=== PATIENT | female | born 1965 | race African-American/Black ===

== ENCOUNTER 2020-11-06 13:30 | Emergency (ER) | payer BC, SELFPAY ==
--- NOTE | ~2020-11-06 | XR_ITS ---
EXAMINATION: XR knee LT 2V CLINICAL INFORMATION: Reason for Exam FALL PAIM COMPARISON: None available at the time of this dictation. TECHNIQUE: Frontal and lateral views of the elbow were obtained. FINDINGS: There is no fracture or dislocation. Bone alignments are satisfactory. Surrounding soft tissues are normal. No osteolytic or osteoblastic lesion. XR/XR knee LT 2V IMPRESSION: No fracture. No joint effusion.
--- NOTE | ~2020-11-06 | XR_ITS ---
EXAMINATION: XR SHOULDER, LEFT CLINICAL INFORMATION: Fall COMPARISON: None TECHNIQUE: Frontal and lateral of the left shoulder. FINDINGS: The bones and soft tissues are normal. No fracture. Glenohumeral and acromioclavicular alignment is anatomic with normal joint space. No abnormal soft tissue calcifications. XR/XR shoulder LT min 2V IMPRESSION: No radiographic evidence of acute fracture or dislocation.
--- NOTE | ~2020-11-06 | XR_ITS ---
EXAMINATION: XR ELBOW, LEFT CLINICAL INFORMATION: Pain. COMPARISON: Same-day left forearm radiographs. TECHNIQUE: AP and lateral views of the left elbow. FINDINGS: The bones and soft tissues are normal. No fracture or joint effusion. Alignment is anatomic. Joint spaces are maintained. XR/XR elbow LT 2V IMPRESSION: Right elbow: No acute fracture or malalignment. No joint effusion. Normal soft tissues.
--- NOTE | ~2020-11-06 | XR_ITS ---
EXAMINATION: XR HAND, LEFT CLINICAL INFORMATION: Pain COMPARISON: None TECHNIQUE: PA, lateral, and oblique views of the left hand. FINDINGS: The bones and soft tissues are normal. No fracture. Alignment is anatomic. Joint spaces are maintained. No erosions or soft tissue calcifications. XR/XR hand LT 2V IMPRESSION: No fracture of the hand. There is comminuted distal radial fracture will be described on the x-ray of the forearm.
--- NOTE | ~2020-11-06 | XR_ITS ---
EXAMINATION: XR FOREARM, LEFT CLINICAL INFORMATION: Pain. COMPARISON: Same-day left elbow radiographs. TECHNIQUE: AP and lateral views of the left forearm were obtained. FINDINGS: Comminuted nondisplaced impacted fracture of the distal radius. Fracture line appears to extend to the articular surface. There is mild volar tilt at the fracture site. The wrist is approximated. Mild soft tissue swelling about the wrist. No radiopaque foreign body. XR/XR forearm LT 2V IMPRESSION: Left forearm: Comminuted, impacted, intra-articular fracture of the distal radius with mild volar tilt at the fracture site. Wrist is approximated.
[2020-11-06 13:38] VITALS: BP 213/99; PULSE 81; RESP 24; TEMP 36.9; O2SAT 95; BMI 31.1
[2020-11-06] MEDS: oxyCODONE HCl Immed Release 5 MG TABLET PO (13:55)
--- NOTE | 2020-11-06 13:55 | ED.LOWEXIN ---
HPI - Extremity Injury (Lower) General Chief Complaint: Extremity Injury, Lower Stated Complaint: fall Time Seen by Provider: 11/06/20 13:43 Source: patient Mode of arrival: ambulatory Limitations: no limitations History of Present Illness HPI Narrative: 55-year-old woman who tells me that she was cleaning her floors when she slipped on her own shoe catching herself on her left upper extremity and left knee. Denies hitting her head or loss of consciousness. She is here complaining of left wrist pain, left shoulder pain and left knee pain.. Related Data Previous Rx's Medication Instructions Recorded oxycodone 5 mg PO Q8H PRN #10 tab 11/06/20 Allergies Allergy/AdvReac Type Severity Reaction Status Date / Time peginterferon marianela-2b Allergy Unknown Verified 11/06/20 13:42 [From Sylatron] Sulfa (Sulfonamide Allergy Unknown Verified 11/06/20 13:42 Antibiotics) sulfamethoxazole Allergy Unknown Verified 11/06/20 13:42 [From Bactrim] trimethoprim [From Bactrim] Allergy Unknown Verified 11/06/20 13:42 Review of Systems Review of Systems: Yes all other systems are reviewed and are negative Constitutional: Constitutional: Reports no additional constitutional complaints, Denies body ache(s), Denies chills, Denies fever(s), Denies headache(s) and Denies weakness Eyes: Eyes: Reports no additional eye complaints and Denies change in vision ENT: Reports system reviewed and no additional complaints, except as documented, Denies dizziness, Denies headache(s), Denies nasal congestion, Denies nasal discharge and Denies neck pain Cardiovascular: Cardiovascular: Reports no additional cardiovascular complaints, Denies chest pain, Denies leg edema and Denies dyspnea Respiratory: Respiratory: Reports no additional respiratory complaints, Denies cough and Denies dyspnea Gastrointestinal: Gastrointestinal: Reports no additional gastrointestinal complaints, Denies abdominal pain, Denies diarrhea, Denies nausea and Denies vomiting Genitourinary: Genitourinary: Reports no additional female genitourinary complaints and Denies urinary incontinence Musculoskeletal: Musculoskeletal: Reports no additional musculoskeletal complaints, Denies back pain, Reports arthralgias, Reports joint swelling, Reports limited range of motion, Denies neck pain, Denies numbness and Denies tingling Integumentary/Breasts: Skin/Breast: Reports system reviewed and no additional complaints, except as docu and Denies rash Neurologic: Reports system reviewed and no additional complaints, except as documented, Denies Abnormal speech present, Denies dizziness, Denies headache(s), Denies numbness, Denies tingling and Denies weakness PMFSH Past Medical History Attestation statement: The following information was validated with the patient. Source: old records reviewed and nursing notes reviewed Medical History HTN (hypertension) Social History Social History Advance Directives: No Advance Directives Information Provided: Yes Patient : No Physical Exam Vital Signs: Vital Signs: Last Vital Signs Temp 97.8 F 11/06/20 15:18 Pulse 65 11/06/20 15:18 Resp 18 11/06/20 15:18 BP 172/86 H 11/06/20 15:18 Pulse Ox 98 11/06/20 15:18 Body Mass Index 31.1 Const: Other: In pain General: cooperative Orientation/consciousness: patient oriented x3 Limitations: no limitations HENMT: Head: Yes normal to inspection Ears: hearing grossly normal bilaterally General nose exam: Normal external nose present Face and sinus: Yes normal facial exam Mouth: Normal oral and palatal mucosa present Throat: Yes posterior oropharynx normal Eyes: General: appearance normal, both eyes and all related structures Pupils: Equal, round and reactive pupils present Neck: Neck: Yes normal visual inspection Chest: Chest palpation & inspection: normal inspection of the chest Resp: Effort & Inspection: normal respiratory effort Auscultation: clear to auscultation bilaterally Cardio: Rate: regular rate Rhythm: regular rhythm Peripheral pulses: Peripheral pulses 2+ throughout GI: Inspection: Yes normal to inspection Palpation (GI): Soft to palpation and nontender Auscultation: normal bowel sounds Back/Spine/Pelvis: Thoracic/Lumbar Spine: thoracic and lumbar spine normal to inspection Skin: General skin exam: no rashes or lesions noted Neuro: General: patient oriented x3, no focal motor deficits and normal sensation to monofilament Cranial nerves: Yes Equal, round and reactive pupils present Cognition (Neuro): normal cognition Speech: No Abnormal speech present Gait exam (Neuro): Normal gait present Motor exam (neuro): 5/5 motor strength present throughout Extrem: Other: The left distal wrist is deformed with swelling and tenderness. Neurovascular intact distally. Palpable radial pulse. There is tenderness to the posterior left shoulder with no obvious deformity or dislocation. Pain with abduction of the shoulder and patient is able. Mild tenderness over the left knee with no obvious swelling or deformity and full range of motion. General: Yes normal to inspection Course Course Course Narrative: 55-year-old female here with left wrist, left shoulder and left knee pain status post mechanical fall at home. Patient has obvious deformity to the left wrist. Will need x-rays, analgesia 1450-x-ray shows a left distal radial fracture which is impacted and intra-articular. No obvious angulation or displacement conducive to reduction. Discussed with orthopedics Dania THOMAS. Recommended sugar-tong splint and follow up with Orthopedics in the office on Sunday -All other imaging negative. Reviewed findings with the patient. Recommended follow-up with Orthopedics. She was splinted and placed in a sling for comfort. Reviewed worrisome signs and symptoms and when to return to the emergency department. Comfortable discharge home. Procedures Procedure Narrative Procedure Narrative: Sugar-tong splint left upper extremity, sling MDM - Extremity Injury (Lower) Medical Records Attestation: I reviewed the patient's medical records. Lab Data Attestation: I reviewed the patient's lab results. Imaging Data left wrist xray: Attestation: I personally reviewed and interpreted this imaging study as follows: Radiologist's impression: [address] [id number] ReportSigned Patient: Macrina Campo#: [id number]: 1965Acct:[id number]/Sex: 55 / FADM Date: 11/06/20Loc: [email or web address].EDAttending Dr: Ordering Physician: FRANNY STANLEY NP Date of Service: 11/06/20 Procedure(s): XR forearm LT 2V Accession Number(s): [id number] cc: FRANNY STANLEY NP~ EXAMINATION: XR FOREARM, LEFT CLINICAL INFORMATION: Pain. COMPARISON: Same-day left elbow radiographs. TECHNIQUE: AP and lateral views of the left forearm were obtained. FINDINGS: Comminuted nondisplaced impacted fracture of the distal radius. Fracture line appears to extend to the articular surface. There is mild volar tilt at the fracture site. The wrist is approximated. Mild soft tissue swelling about the wrist. No radiopaque foreign body. XR/XR forearm LT 2V IMPRESSION: Left forearm: Comminuted, impacted, intra-articular fracture of the distal radius with mild volar tilt at the fracture site. Wrist is approximated left elbow xray: Attestation: I personally reviewed and interpreted this imaging study as follows: Radiologist's impression: EXAMINATION: XR ELBOW, LEFT CLINICAL INFORMATION: Pain. COMPARISON: Same-day left forearm radiographs. TECHNIQUE: AP and lateral views of the left elbow. FINDINGS: The bones and soft tissues are normal. No fracture or joint effusion. Alignment is anatomic. Joint spaces are maintained. XR/XR elbow LT 2V IMPRESSION: Right elbow: No acute fracture or malalignment. No joint effusion. Normal soft tissues. left hand xray: Attestation: I personally reviewed and interpreted this imaging study as follows: Radiologist's impression: [address] [address]IEni ReportSigned Patient: Macrina CampoMR#: [id number]: 1965Acct:[id number]/Sex: 55 / FADM Date: 11/06/20Loc: EDAttending Dr: Ordering Physician: FRANNY STANLEY NP Date of Service: 11/06/20 Procedure(s): XR hand LT 2V Accession Number(s): [id number] cc: FRANNY STANLEY NP~ EXAMINATION: XR HAND, LEFT CLINICAL INFORMATION: Pain COMPARISON: None TECHNIQUE: PA, lateral, and oblique views of the left hand. FINDINGS: The bones and soft tissues are normal. No fracture. Alignment is anatomic. Joint spaces are maintained. No erosions or soft tissue calcifications. XR/XR hand LT 2V IMPRESSION: No fracture of the hand. left knee xray: Attestation: I personally reviewed and interpreted this imaging study as follows: Radiologist's impression: EXAMINATION: XR knee LT 2V CLINICAL INFORMATION: Reason for Exam FALL PAIM COMPARISON: None available at the time of this dictation. TECHNIQUE: Frontal and lateral views of the elbow were obtained. FINDINGS: There is no fracture or dislocation. Bone alignments are satisfactory. Surrounding soft tissues are normal. No osteolytic or osteoblastic lesion. XR/XR knee LT 2V IMPRESSION: No fracture. left shoulder xray: Attestation: I personally reviewed and interpreted this imaging study as follows: Radiologist's impression: EXAMINATION: XR SHOULDER, LEFT CLINICAL INFORMATION: Fall COMPARISON: None TECHNIQUE: Frontal and lateral of the left shoulder. FINDINGS: The bones and soft tissues are normal. No fracture. Glenohumeral and acromioclavicular alignment is anatomic with normal joint space. No abnormal soft tissue calcifications. XR/XR shoulder LT min 2V IMPRESSION: No radiographic evidence of acute fracture or dislocation. Discharge Plan Discharge Clinical Impression: Distal radial fracture Qualifiers: Encounter type: initial encounter Fracture type: closed Fracture morphology: other intra-articular Laterality: left Qualified Code(s): S52.572A - Other intraarticular fracture of lower end of left radius, initial encounter for closed fracture Patient Disposition: Home, Self-Care Instructions: Wrist Fracture in Adults (ED) Additional Instructions: The splint stays on all times. Do not let it get wet. Use a sling for comfort Follow-up with Orthopedics on Sunday Ice, elevation, pain medication as needed Prescriptions: New oxycodone 5 mg tablet 5 mg PO Q8H PRN (Reason: pain) Qty: 10 RF: 0 Referrals: Drew Washington MD [Physician] - 2 days Stand Alone Forms: Work/School Release Interventions: ED Discharge Assessment Last Done: 11/06/20 16:37 Discharge Date/Time: 11/06/20 16:38
[2020-11-06] MEDS: Ibuprofen 800 MG TABLET PO (14:00)
[2020-11-06 15:18] VITALS: BP 172/86; PULSE 65; RESP 18; TEMP 36.6; O2SAT 98
--- NOTE | 2020-11-06 15:52 | PC.NURSE ---
[place] MCINTYRE APPLIED TO LUE, PT TOLERATED WELL, AWAITING ASSESSMENT BY GEE STANLEY
== END 2020-11-06 16:38 | disposition home or self-care (01) ==
PROVIDERS: Emergency Provider Emergency Medicine
DX: S52.572A Other intraarticular fracture of lower end of left radius, initial encounter for closed fracture (principal); W01.0XXA Fall on same level from slipping, tripping and stumbling without subsequent striking against object, initial encounter; M25.512 Pain in left shoulder; M25.562 Pain in left knee; I10 Essential (primary) hypertension; Y93.E5 Activity, floor mopping and cleaning; Y92.010 Kitchen of single-family (private) house as the place of occurrence of the external cause; Y99.9 Unspecified external cause status
CPT/HCPCS: 29125; 73030; 73070; 73090; 73120; 73560; 99283; 99284

== ENCOUNTER 2020-11-09 07:46 | Outpatient (REF) | payer BC, SELFPAY ==
--- NOTE | ~2020-11-09 | XR_ITS ---
EXAMINATION: XR WRIST, LEFT CLINICAL INFORMATION: Pain left wrist COMPARISON: None TECHNIQUE: PA, lateral, and oblique views of the left wrist. FINDINGS: There is a comminuted nondisplaced impacted fracture distal radius stabilized in a hard cast.. The soft tissues are normal. XR/XR wrist LT min 3V IMPRESSION: Comminuted nondisplaced fracture distal radius in satisfactory alignment status post placement in a hard cast.
== END 2020-11-09 07:47 | disposition home or self-care (01) ==
LOC: HO.HOSX 07:46
PROVIDERS: Visit Provider Physician Assistant
DX: S52.502D Unspecified fracture of the lower end of left radius, subsequent encounter for closed fracture with routine healing (principal)
CPT/HCPCS: 73110

== ENCOUNTER 2020-11-15 07:33 | Outpatient (REF) | payer BC, SELFPAY ==
--- NOTE | ~2020-11-15 | XR_ITS ---
EXAMINATION: XR WRIST, LEFT CLINICAL INFORMATION: Fracture follow-up. COMPARISON: Most recent left wrist radiographs dated 11/09/2020. TECHNIQUE: PA, lateral, and oblique views of the left wrist. FINDINGS: Redemonstration of a comminuted distal radial fracture in unchanged anatomic alignment when compared to the most recent radiographs. No significant interval new bone/callus formation. No new fracture. No osseous erosion. Circumferential soft tissue swelling. XR/XR wrist LT min 3V IMPRESSION: Comminuted distal radial fracture in unchanged anatomic alignment.
== END 2020-11-15 07:34 | disposition home or self-care (01) ==
LOC: HO.HOSX 07:33
PROVIDERS: Visit Provider Physician Assistant
DX: S52.502D Unspecified fracture of the lower end of left radius, subsequent encounter for closed fracture with routine healing (principal); S83.8X2A Sprain of other specified parts of left knee, initial encounter
CPT/HCPCS: 73110

== ENCOUNTER 2020-12-14 07:24 | Outpatient (REF) | payer BC, SELFPAY ==
--- NOTE | ~2020-12-14 | XR_ITS ---
EXAMINATION: XR WRIST, LEFT CLINICAL INFORMATION: Fracture of left wrist. COMPARISON: None TECHNIQUE: PA, lateral, and oblique views of the left wrist. FINDINGS: There is nondisplaced comminuted distal radial fracture and in anatomic alignment. The radioulnar and carpal alignment is maintained normal. There is minimal dorsal soft tissue swelling. XR/XR wrist LT min 3V IMPRESSION: Multiple nondisplaced comminuted distal radial fracture in alignment, stable compared to previous study 11/15/2020.
== END 2020-12-14 07:25 | disposition home or self-care (01) ==
LOC: HO.HOSX 07:24
PROVIDERS: Visit Provider Physician Assistant
DX: S52.502A Unspecified fracture of the lower end of left radius, initial encounter for closed fracture (principal); X58.XXXA Exposure to other specified factors, initial encounter; Y93.9 Activity, unspecified; Y92.9 Unspecified place or not applicable; Y99.9 Unspecified external cause status
CPT/HCPCS: 73110

== ENCOUNTER 2020-12-16 10:22 | Outpatient (REF) | payer BC, SELFPAY ==
--- NOTE | ~2020-12-16 | MR_ITS ---
EXAMINATION: MR KNEE WITHOUT CONTRAST, LEFT CLINICAL INFORMATION: Pain and swelling. COMPARISON: None. TECHNIQUE: MRI of the knee without contrast was performed using routine sequences on a high-field scanner. FINDINGS: MENISCI: Medial Meniscus: Intact. Lateral Meniscus: Intact. LIGAMENTS: Cruciate: ACL fibers are thinned, lax with apparent discontinuity proximally, having the appearance of full-thickness tear. PCL is intact.. Collateral: Grade 2 sprain/partial tear MCL. LCL complex is intact. EXTENSOR MECHANISM: Intact. ARTICULAR CARTILAGE/BONE: Patellofemoral Compartment: Focal cartilage heterogeneity of the central patella. Trochlear cartilage is intact. Medial Compartment: No focal cartilage loss. Lateral Compartment: Edema in the posterolateral aspect of the lateral femoral condyle with overlying cartilage heterogeneity, may reflect sequela of contusion or degeneration. No fracture. JOINT FLUID AND BURSAE: Trace joint fluid. No significant Demarco's cyst. MR/MR knee LT wo con IMPRESSION: 1. Abnormality of the ACL with the appearance of full-thickness tearing. 2. Grade 2 sprain/partial tear MCL. 3. Focal cartilage heterogeneity in the central patella. Osteochondral findings in the posterolateral aspect of the lateral femoral condyle, could be related to contusion or degeneration.
== END 2020-12-16 10:23 | disposition home or self-care (01) ==
LOC: HO.MRI 10:22
PROVIDERS: Visit Provider Physician Assistant
DX: S83.8X2A Sprain of other specified parts of left knee, initial encounter (principal)
CPT/HCPCS: 73721

== ENCOUNTER → 2020-12-21 13:23 | Outpatient (BNVA) | payer BC, SELFPAY | PROVIDERS: Visit Provider Physician Assistant ==

== ENCOUNTER 2020-12-29 08:38 | Outpatient (REF) | payer BC, SELFPAY ==
--- NOTE | ~2020-12-29 | XR_ITS ---
EXAMINATION: XR WRIST, LEFT CLINICAL INFORMATION: Left wrist pain, fracture follow-up COMPARISON: 12/14/2020 TECHNIQUE: PA, lateral, and oblique views of the left wrist. FINDINGS: Stable alignment. The distal radius fracture line is slightly less conspicuous suggesting that there has been some interval healing. No new abnormality. XR/XR wrist LT min 3V IMPRESSION: There has been some interval healing of the distal radius fracture.
== END 2020-12-29 08:39 | disposition home or self-care (01) ==
LOC: HO.HOSX 08:38
PROVIDERS: Visit Provider Orthopaedic Surgery
DX: S52.502A Unspecified fracture of the lower end of left radius, initial encounter for closed fracture (principal); M25.632 Stiffness of left wrist, not elsewhere classified
CPT/HCPCS: 73110

== ENCOUNTER 2021-01-07 14:00 | Outpatient (RCR) | payer BC, SELFPAY ==
--- NOTE | 2020-11-18 08:34 | MHC.PT.EP ---
[facility] [place] Office [place] Office [place] Office [address] Sixto Caro [address] [phone] F: [phone] F: [phone] F: [phone] F: [phone] Physical Therapy Plan of Care Date of Evaluation: Date of Surgery: Diagnosis: left knee sprain Assessment: The patient has reduced Left knee ROM and strength. She was + for special tests indicating the anterior medial meniscus. I am suspecting an anterior medial meniscal tear. Her collateral ligaments seem intact with no pain when testing these ligaments. She had pain during the anterior drawer, but joint play seemed WNL. The patient was educated to ice 3-4x/day and she was given instructions to get a cane to unload her left knee due to a significant limp. I instructed on exercises to promote and restore knee ROM, and quad strengthening in a neutral position. If no improvements 4-5 visits I will refer back to the MD for further evaluation. I used iontophoresis today for local, point specific pain. Frequency and Duration: The patient will be seen 2x/week x 4 weeks Short Term Goals: Pt will be able to demonstrate good walking pattern with SPC. Pt will achieve full knee ROM 0-125 [address] [employer] Goals: 4 weeks. - to improve activity tolerance to help community ambulation distances demonstrated by tolerating at least 45 minutes of therapeutic activity with less than 3 resting breaks. 4 weeks - the patient will have no limiting pain in her knees during gait with community ambulation to show improved activity tolerance. 4 weeks - pt will have more quad control with TKE demonstrated by no medial collapse during a curb height step. 4 weeks -patient to be able to return to all functional movements and ADL's without limiting knee pain to show return to PLOF. Treatment Plan: Modalities to reduce pain, spasms and effusion. Manual therapy to restore motion and function. Therapeutic exercise to improve strength and flexibility. Neuromuscular re-education for posture and balance. Therapeutic activities to return to functional activities of daily living. Electronically signed by: Please sign and return to therapist. Thank you for your referral.
== END 2021-01-08 08:00 | disposition home or self-care (01) ==
LOC: HO.PT 14:00
PROVIDERS: Visit Provider Physician Assistant
DX: S83.8X2A Sprain of other specified parts of left knee, initial encounter (principal)
CPT/HCPCS: 97033; 97110; 97116; 97140; 97162; 97530

== ENCOUNTER → 2021-01-26 13:43 | Outpatient (BNVA) | payer BC, SELFPAY | PROVIDERS: Visit Provider Orthopaedic Surgery ==

== ENCOUNTER → 2021-03-03 13:37 | Outpatient (BNVA) | payer BC, SELFPAY | PROVIDERS: Visit Provider Orthopaedic Surgery ==

== ENCOUNTER 2021-04-08 10:00 | Outpatient (RCR) | payer BC, SELFPAY ==
--- NOTE | 2021-01-07 14:20 | MHC.OT.OEV ---
[address] [phone] F: [phone] Occupational Therapy Evaluation Diagnosis: Left distal radius fx Date of Onset: 11/06/20 Date of Surgery: Attending Provider: Dr Ho Prescribed Treatment: Follow Up Appointment: 01/26/21 History of Current Condition: 55 yo female tripped over a pair over shows and landed on her left side, 11/06/20. Seen in the ED where x-ray showed compacted intra-articular left distal radius fracture. She was placed in a sugar tong splint and referred to [facility]. 12/14/20 she was placed in a custom volar orthosis. She has since been referred to OT for further management. Significant Medical History: Precautions/Contraindications: 8 weeks s/p injury No lifting >3lb Patient Goals: Hand Dominance: Right Observations: Wearing prefab orthosis left wrist QuickDASH Score: 86 Prior Level of Function and Occupation Self Care, Employment, Leisure: [employer] rn patient care, back to work light duty Enjoys playing basketball Living Situation, Family and/or Social Support: Lives w/ her daughter, has a dog Current Level of Function and Occupation Self Care, Employment, Leisure: Now on light duty, unable to lift obejcts (no lifting more than 3 lbs) Trouble w/ bilateral activities, trying to do everything with her right hand Sleep: Wakes up w/ pain, takes brace off Driving: Using dominant right hand, supports left hand on stearing wheel Vision: Balance: Pain Assessment Pain Score: 10 Pain Scale Used: Numeric (0 - 10) Pain Location and Description: Across digits, pain in radial wrist and thumb Aggravating Factors: Trying to use it Alleviating Factors: Uses heat or ice Skin and Soft Tissue Assessment Skin and Soft Tissue: Comments: Decreased muscle bulk through left UE, specifically Edema in wrist Right MP joint deformity from old basketball injury Right thenar atrophy Nerve assessment Ulnar Nerve: Left Impaired Median Nerve: Radial Nerve: Comments: 3/5 small finger add Sensory Assessment Temperature: Light Touch: Proprioception: Vibration: Comments: Pt reports CTS symptoms right thenar area Occasional nighttime numbness in left D4-D5 Edema Assessment Upper Extremity: Lower Extremity: Comments: Wrist just distal to carpal tunnel R 16.8 cm L 18.8 cm Special Tests Comments: (-) Phalen's Test AROM(PROM) Strength Cervical Cervical Flexion: Cervical Extension: Cervical Lateral Flexion: Cervical Rotation: Comments: Shoulder Flexion: Extension: Abduction: Internal Rotation: External Rotation: Comments: Decreased end range left shoulder flexion w/ tightness radiating through upper arm Flexion: Extension: Abduction: Internal Rotation: External Rotation: Comments: Elbow Flexion: Extension: Pronation: Supination: Comments: Flexion: Extension: Pronation: R 80 L 74 Supination: R 85 L 64 Comments: Wrist Flexion: R 62 L 32 Extension: R 68 L 50 Ulnar Deviation: R 42 L 22 Radial Deviation: R 14 L 12 Comments: Flexion: Extension: Ulnar Deviation: Radial Deviation: Comments: Thumb Thumb CMC Flexion: Thumb MCP Flexion: Thumb IP Flexion: Radial Abduction: Palmar Abduction: [place] (K[place]andji 0-10): Comments: WFL Digits Index MCP: PIP: DIP: Long MCP: PIP: DIP: Ring MCP: PIP: DIP: Small MCP: PIP: DIP: Comments: Min decreased end range and intrinsic tightness w/ hook fist Gross Grasp: R 100 lb L 15 lb Lateral Pinch: Two-Point Pinch: Three-Jaw Nikhil: Comments: Patient Education Primary Language: Malay 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 Patient demonstrates Patient verbalizes Barriers to Learning: None Readiness for Learning: Accepting Who was educated? Patient Comments: Plan of Care Assessment: 55 yo right hand dominant female presents about 8 weeks s/p fall w/ left intra-articular comminuted distal radius fx. She was casted and has since been placed in a removable pre-joe short arm orthosis. 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 On assessment, she has decreased ROM in wrist and forearm w/ decreased gross grasp, but has done a good job of regaining digit ROM and dexterity. She reports occasional ulnar sided hand numbness at nighttime, likely positional. She will benefit from cont'd therapy services for progression of range, strength and overall functional return of left hand and wrist. STG Duration: 2 weeks Short Term Goals: Ind w/ HEP Ind w/ heat/cold modalities Ind w/ edema management techniques gross grasp >25lb Forearm sup >70 degrees Wrist flex > 45 degrees Wrist ext >65 degrees LTG Duration: 4 weeks Care Home Goals: Resting pain free Gross Grasp >45lb QuickDash score <35 pts Forearm sup >80 degrees Wrist flex >55 degrees Frequency and Duration: The patient will be seen 2x/wk for 4 weeks Treatment Plan: Therapeutic Exercise Therapeutic Activity Home Exercise Program Splinting Patient Education Desensitization/Sensory Re-ed Edema Control ADL Training Ultrasound Iontophoresis Paraffin Fluidotherapy MHP Cold Packs Joint Mobilization Soft Tissue Mobilization Kinesiotaping Electronically Signed By: Yesi Ardon OTR/L Reviewed/agree with student documentation: Therapist: Please sign and return to therapist, Thank you for your referral.
--- NOTE | 2021-01-25 14:01 | MHC.OT.OP ---
[address] [phone] F: [phone] Occupational Therapy Progress Note Diagnosis: Left distal radius fx Date of Evaluation: 01/07/21 Treatments to Date: 7 Pain Score: 4 Pain Location: left radial volar wrist and thumb Objective Measures: Gross Grasp 27lb Flex 36 - improved to 50 after light stretch Ext 60 Rad Dev 16 Uln Dev 30 Pro 60 Sup 60 Status: Progressing Assessment: Progressing well, difficult maintaining flexion gains from each treatment, but comes to functional range after heat and stretch. 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 Tolerating submax resisted wrist ex and partial wt bearing. Pt is anxious to regain full function. Short Term Goals: Ind w/ HEP (met) Ind w/ heat/cold modalities (met) Ind w/ edema management techniques (met) gross grasp >25lb (met) Forearm sup >70 degrees Wrist flex > 45 degrees Wrist ext >65 degrees Nutrition Services Worker Goals: Resting pain free Gross Grasp >45lb QuickDash score <35 pts Forearm sup >80 degrees Wrist flex >55 degrees Frequency and Duration: The patient will be seen 2x/wk for 4 weeks Treatment Plan: Therapeutic Exercise Therapeutic Activity Home Exercise Program Splinting Neuro Re-ed Patient Education Edema Control ADL Training Ultrasound Paraffin Fluidotherapy MHP Cold Packs Joint Mobilization Soft Tissue Mobilization Kinesiotaping Electronically Signed By: ANEL Cabrera/L Reviewed/agree with student documentation: N/A Therapist:
--- NOTE | 2021-04-08 12:12 | MHC.OT.DC ---
[address] [phone] F: [phone] Occupational Therapy Discharge Note Provider: Dr Ho Diagnosis: Left distal radius fx Date of Surgery: Date of Evaluation: 01/07/21 Date of Discharge: 04/08/21 Treatments to Date: 13 Cancellations to Date: 4 No Shows to Date: Discharge Status: Achieved Goals Improved Function Independent with HEP Discharge Summary: Pt seen 1 x in the past two wks due to cancelling her last appt. Pt being seen 1x wk in OT per pt preference due to her work schedule. Pt had been instructed on how to add simulated work with her HEP. Today she presents with mild difficulty with lifting to chest height with left shoulder elevation due to continued limitation in wrist ulnar dev at 20 deg. Continued mild radial dorsal wrist jt effusion noted and pt with con't complaint of ulnar wrist pain improving. She is able to demo repetitive lifting with the left up to 15 lb and bilateral lift below chest height up to 30 lb with no difficulty I anticipate continued slow improvement in pain, ROM and strength with her HEP and functional activities with her return to full duty. Skilled OT not needed at this time Electronically Signed By: Angie Campoverde OT CHT CLT Reviewed/agree with student documentation: N/A Therapist: Please Sign and return to therapist, thank you for your referral.
== END 2021-11-01 11:38 | disposition home or self-care (01) ==
LOC: HO.OT 10:00
PROVIDERS: Visit Provider Orthopaedic Surgery
DX: S52.502D Unspecified fracture of the lower end of left radius, subsequent encounter for closed fracture with routine healing (principal)
CPT/HCPCS: 97035; 97110; 97112; 97140; 97165; 97530; 97535; 97760

== ENCOUNTER → 2021-04-13 13:49 | Outpatient (BNVA) | payer BC, SELFPAY | PROVIDERS: Visit Provider Orthopaedic Surgery ==